=== PATIENT | male | born 1950 | race African-American/Black ===

== ENCOUNTER 2017-07-05 08:48 | Emergency (ER) | payer OTHER, MEDICARE ==
[~2017-07-05] VITALS: Ht 182.9 cm; Wt 91.0 kg
[2017-07-05 13:18] VITALS: BP 188/103
== END 2017-07-05 13:20 | disposition home or self-care (01) ==
LOC: ER 09:49
DX: T16.1XXA Foreign body in right ear, initial encounter (principal); X58.XXXA Exposure to other specified factors, initial encounter; Y93.89 Activity, other specified; Y92.018 Other place in single-family (private) house as the place of occurrence of the external cause
CPT/HCPCS: 10120; 99284